=== PATIENT | female | born 2000 | race Caucasian/White ===

== ENCOUNTER 2021-06-21 20:48 | Emergency (ER) | payer BC ==
--- NOTE | 2021-06-21 21:08 | EDM.PDOC ---
ED HPI GENERAL MEDICAL PROBLEM - General Stated Complaint: TROUBLE BREATHING Time Seen by Provider: 06/21/21 21:05 Source of Information: Reports: Patient History Limitations: Reports: No Limitations - History of Present Illness INITIAL COMMENTS - FREE TEXT/NARRATIVE: 21-year-old female with history of migraine headaches who reports set of frontal headache at around 6 PM tonight when she was driving home. By the time she got home the pain which had been mild and spread to behind her eyes and was becoming more severe. She took one of her Zomig and this did nothing to relieve her headache and in fact the headache got worse with time and is now all over her head. She reports that the pain is a 7/10. It is throbbing and pressure type headache. There is photophobia and photophobia and she has had nausea with multiple episodes of dry heaving. The nausea is persisting. She denies any neck pain. She does report general body aches. She also reports teeth pain and facial and ear pain. She has no arm or leg weakness. She is tearful and is quite anxious right now. She reports that the teeth pain which is really in all of her teeth which is unusual because she has not had this with her migraines in the past. Also she usually has more vomiting associated with her migraines. There is no neck stiffness. She states that she does have some allergy type symptoms but she has had no fevers or chills and there has been no purulent discharge from her nose. There are no other associated signs or symptoms. There are no other modifying factors. Onset: Today (6 PM) Duration: Getting Worse Location: Reports: Head, Face, Generalized (Body aches.) Quality: Reports: Ache, Sharp, Throbbing Severity: Moderate (to severe.) Improves with: Reports: None Worsens with: Reports: Other (As above.), Movement Context: Reports: Other (As above.). Denies: Trauma Associated Symptoms: Reports: No Other Symptoms (Except as above.) Treatments DISC JOCKEY: Reports: Other Medication(s) (zomig) Headache Pain Score (Numeric/FACES): 7 - Related Data Allergies Allergy/AdvReac Type Severity Reaction Status Date / Time amoxicillin [From Augmentin] Allergy Rash Verified 06/21/21 20:57 clavulanic acid Allergy Rash Verified 06/21/21 20:57 [From Augmentin] Past Medical History Neurological History: Reports: Migraines - Past Surgical History HEENT Surgical History: Reports: Oral Surgery ([place] teeth extraction), Tonsillectomy GI Surgical History: Reports: Cholecystectomy Female Surgical History: Reports: Other (See Below) (Labiaplasty) Social & Family History - Tobacco Use Tobacco Use Status *Q: Unknown Ever Used Tobacco (Nonsmoker.) - Alcohol Use Alcohol Use History: Yes Alcohol Use in Last Twelve Months: No Alcohol Use Comment: No alcohol for the past 3 years. - Living Situation & Occupation Living situation: Reports: Single Occupation: Employed (Works as a graduating machine operator at [employer] ED ROS GENERAL - Review of Systems Review Of Systems: See Below Constitutional: Denies: Fever, Chills HEENT: Reports: Other (Nasal congestion. Allergy symptoms.) Respiratory: Denies: Shortness of Breath, Cough Cardiovascular: Denies: Chest Pain, Palpitations GI/Abdominal: Reports: Nausea, Vomiting (Right knee pain.) : Reports: Other (Denies any possibility of .). Denies: Dysuria Musculoskeletal: Reports: Other (Some body aches.). Denies: Neck Pain Skin: Denies: Diaphoresis, Rash Neurological: Reports: Dizziness, Headache Psychiatric: Reports: Anxiety Hematologic/Lymphatic: Denies: Easy Bleeding, Easy Bruising ED EXAM, GENERAL - Physical Exam Exam: See Below Exam Limited By: No Limitations General Appearance: Alert, Anxious, Moderate Distress (Secondary to pain.), Obese Eye Exam: Bilateral Eye: EOMI, Normal Inspection, Other (Photophobia) Ears: Normal External Exam, Hearing Grossly Normal Ear Exam: Bilateral Ear: Auricle Normal Nose: Normal Inspection, Normal Mucosa, No Blood Throat/Mouth: Normal Inspection, Normal Teeth, Normal Voice, No Airway Compromise Head: Atraumatic, Normocephalic Neck: Normal Inspection, Supple, Non-Tender, Full Range of Motion Respiratory/Chest: No Respiratory Distress, Lungs Clear, No Accessory Muscle Use Cardiovascular: Normal Peripheral Pulses, Regular Rate, Rhythm. No: No Murmur Peripheral Pulses: 2+: Radial (L), Radial (R) GI/Abdominal: Normal Bowel Sounds, Soft, Non-Tender, No Mass Back Exam: Normal Inspection, Full Range of Motion Extremities: Normal Inspection, Normal Range of Motion, Normal Capillary Refill Neurological: Alert, Oriented, CN II-XII Intact, Normal Cognition, No Motor/Sensory Deficits Psychiatric: Anxious Skin Exam: Warm, Dry, Intact, Normal Color, No Rash Course - Vital Signs Last Recorded V/S: Last Vital Signs Temp 36.4 C 06/21/21 20:57 Pulse 75 06/21/21 23:01 Resp 18 06/21/21 23:01 BP 125/86 06/21/21 23:01 Pulse Ox 97 06/21/21 20:57 - Orders/Labs/Meds Orders: Active Orders 24 hr Category Date Time Status Sodium Chloride 0.9% [Saline Flush] Med 06/21/21 21:18 Active 10 ml FLUSH ASDIRECTED PRN Peripheral IV Insertion Adult [OM.PC] Routine Oth 06/21/21 21:18 Ordered Medication Orders Sodium Chloride (Sodium Chloride 0.9% 10 Ml Syringe) 10 ml FLUSH ASDIRECTED PRN PRN Reason: Keep Vein Open Meds: Medications Generic Name Dose Route Start Last Admin Trade Name Freq PRN Reason Stop Dose Admin Sodium Chloride 10 ml 06/21/21 21:18 Sodium Chloride 0.9% 10 Ml Syringe FLUSH ASDIRECTED PRN Keep Vein Open Discontinued Medications Generic Name Dose Route Start Last Admin Trade Name Freq PRN Reason Stop Dose Admin Diphenhydramine HCl 25 mg 06/21/21 21:19 06/21/21 21:39 Diphenhydramine 50 Mg/Ml Sdv IVPUSH 06/21/21 21:20 25 mg ONETIME ONE Administration Sodium Chloride 1,000 mls @ 999 mls/hr 06/21/21 21:18 06/21/21 21:41 Normal Saline IV 06/21/21 22:18 999 mls/hr .BOLUS ONE Administration Prochlorperazine Edisylate 10 52 mls @ 150 mls/hr 06/21/21 21:19 06/21/21 21:41 mg/ Sodium Chloride IV 06/21/21 21:39 150 mls/hr ONETIME ONE Administration Ketorolac Tromethamine 30 mg 06/21/21 21:19 06/21/21 21:40 Ketorolac 30 Mg/Ml Sdv IVPUSH 06/21/21 21:20 30 mg ONETIME ONE Administration Lorazepam 1 mg 06/21/21 21:19 06/21/21 21:30 Lorazepam 2 Mg/Ml Sdv IVPUSH 06/21/21 21:20 1 mg ONETIME ONE Administration - Re-Assessments/Exams Free Text/Narrative Re-Assessment/Exam: 06/21/21 23:00: Patient's medications have been given. Her IV fluids have been infused completely. Her headache is essentially gone. She is awake, alert and appropriate. She has no more teeth pain or facial pain. Her ear pain, photophobia and phonophobia have all resolved. She feels much improved. She has been ambulatory without any problems. The plan will be to discharge her home at this point. Departure - Departure Time of Disposition: 23:05 Disposition: Home, Self-Care 01 Condition: Good (Improved) Clinical Impression: Migraine headache Qualifiers: Migraine type: unspecified Status migrainosus presence: without status migrainosus Intractability: not intractable Qualified Code(s): G43.909 - Migraine, unspecified, not intractable, without status migrainosus - Discharge Information Instructions: Migraine Headache, [id number] Referrals: PCP,None [Primary Care Provider] - Additional Instructions: Your responded well to the IV medications that you were given for your migraine headache. You should rest in a dark, quiet room. You should increase your fluid intake. Follow-up with your primary provider. Back to the emergency department for worsening headache, unrelenting vomiting, high fever, severe weakness or any other concerning signs or symptoms. Sepsis Event Note (ED) - Evaluation Sepsis Screening Result: No Definite Risk - Focused Exam Vital Signs: Vital Signs Temp Pulse Resp BP Pulse Ox 06/21/21 23:01 75 18 125/86 06/21/21 20:57 36.4 C 93 18 155/117 H 97 - My Orders Last 24 Hours: My Active Orders 06/21/21 21:18 Sodium Chloride 0.9% [Saline Flush] 10 ml FLUSH ASDIRECTED PRN Peripheral IV Insertion Adult [OM.PC] Routine - Assessment/Plan Last 24 Hours: My Active Orders 06/21/21 21:18 Sodium Chloride 0.9% [Saline Flush] 10 ml FLUSH ASDIRECTED PRN Peripheral IV Insertion Adult [OM.PC] Routine
[2021-06-21] MEDS ORDERED: Sodium Chloride 0.9% 10 ML Syringe FLUSH PRN (21:18)
[2021-06-21] MEDS ORDERED: Sodium Chloride 0.9% 1,000 ML IV ONE (21:18)
[2021-06-21] MEDS ORDERED: LORazepam 2 MG/ML SDV IVPUSH ONE (21:19)
[2021-06-21] MEDS ORDERED: diphenhydrAMINE 50 MG/ML SDV IVPUSH ONE (21:19)
[2021-06-21] MEDS ORDERED: Prochlorperazine 10 MG in Sodium Chloride 0.9% 50 ML IV ONE (21:19)
[2021-06-21] MEDS ORDERED: Ketorolac 30 MG/ML SDV IVPUSH ONE (21:19)
== END 2021-06-21 23:21 | disposition home or self-care (01) ==
LOC: FB.ED 20:48
DX: G43.909 Migraine, unspecified, not intractable, without status migrainosus (principal); Z88.0 Allergy status to penicillin; Z88.1 Allergy status to other antibiotic agents
CPT/HCPCS: 96365; 96375; 99283; J0780; J1200; J1885; J2060; J7030

== ENCOUNTER 2021-09-13 19:26 | Emergency (ER) | payer BC ==
--- NOTE | 2021-09-13 20:19 | EDM.PDOC ---
ED HPI GENERAL MEDICAL PROBLEM - General Chief Complaint: Headache Stated Complaint: MIGRAINE 2 DAYS Time Seen by Provider: 09/13/21 20:15 Source of Information: Reports: Patient History Limitations: Reports: No Limitations - History of Present Illness INITIAL COMMENTS - FREE TEXT/NARRATIVE: 21-year-old female with onset of headache 2 days ago. She awoke with a headache and she had some nausea and vomiting at that time and it was all across her forehead and associated with photophobia. She states it was like her typical migraine and she took ibuprofen and slept and her headache seemed to go away yesterday and then it came back according when she awoke and she has had nausea through the day some neck stiffness and is mostly on the left side of her head now. There is no photophobia. She has had no vomiting. The headache is rated by her as a 5/10. She has had no fevers or chills. No nasal congestion or sore throat. No difficulty breathing. She states she has had headaches like this in the past and this one is just not resolving. There are no other associated signs or symptoms. There are no other modifying factors. 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.) Left Headache Pain Score (Numeric/FACES): 5 - Related Data Allergies Allergy/AdvReac Type Severity Reaction Status Date / Time amoxicillin [From Augmentin] Allergy Rash Verified 09/13/21 19:48 clavulanic acid Allergy Rash Verified 09/13/21 19:48 [From Augmentin] Home Meds: Home Meds ZOLMitriptan [Zolmitriptan] 2.5 mg PO DAILY 09/13/21 [History] Past Medical History HEENT History: Reports: Impaired Vision Neurological History: Reports: Migraines Psychiatric History: Reports: Anxiety, Depression, Panic Attack - Past Surgical History HEENT Surgical History: Reports: Oral Surgery ([place] teeth extraction), Tonsillectomy GI Surgical History: Reports: Cholecystectomy Female Surgical History: Reports: Other (See Below) (Labiaplasty) Social & Family History - Tobacco Use Tobacco Use Status *Q: Unknown Ever Used Tobacco (Nonsmoker.) - Caffeine Use Caffeine Use: Reports: Coffee, Soda - Alcohol Use Alcohol Use History: Yes Alcohol Use Frequency: Socially - Living Situation & Occupation Living situation: Reports: Single 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 Denies: Throat Pain Respiratory: Denies: Shortness of Breath, Cough Cardiovascular: Reports: Lightheadedness. Denies: Chest Pain Endocrine: Reports: Fatigue GI/Abdominal: Reports: Nausea. Denies: Abdominal Pain, Diarrhea, Vomiting Musculoskeletal: Reports: Neck Pain (Some neck stiffness.). Denies: Back Pain Skin: Denies: Diaphoresis, Rash Neurological: Reports: Headache Hematologic/Lymphatic: Denies: Easy Bleeding, Easy Bruising - Physical Exam Exam: See Below Exam Limited By: No Limitations General Appearance: Alert, WD/WN, Moderate Distress (Appears in some discomfort.) Eye Exam: Bilateral Eye: EOMI, Normal Inspection (Sclera are anicteric), PERRL, Other (Photophobia bilaterally) Ears: Normal External Exam, Hearing Grossly Normal Nose: Normal Inspection, Normal Mucosa, No Blood Throat/Mouth: Normal Voice, No Airway Compromise, Other (Primary to arrange.) Head Exam: Atraumatic, Normocephalic Neck: Normal Inspection, Supple, Non-Tender, Full Range of Motion, Other (No meningismus.) Respiratory/Chest: No Respiratory Distress, Lungs Clear, Normal Breath Sounds, No Accessory Muscle Use, Chest Non-Tender Cardiovascular: Normal Peripheral Pulses, Regular Rate, Rhythm, No Murmur Neuro Exam (Abbreviated): Alert, Oriented, CN II-XII Intact, Normal Cognition, No Motor/Sensory Deficits Back Exam: Normal Inspection Extremities: Normal Inspection, Normal Range of Motion, Non-Tender, No Pedal Edema, Normal Capillary Refill Psychiatric: Depressed Mood Skin Exam: Warm, Dry, Intact, Normal Color, No Rash Course - Vital Signs Last Recorded V/S: Last Vital Signs Temp 36.6 C 09/13/21 19:50 Pulse 71 09/13/21 19:50 Resp 18 09/13/21 19:50 BP 151/109 H 09/13/21 19:50 Pulse Ox 97 09/13/21 19:50 - Orders/Labs/Meds Orders: Active Orders 24 hr Category Date Time Status Peripheral IV Insertion Adult [OM.PC] Routine Oth 09/13/21 20:26 Ordered Meds: Medications Discontinued Medications Generic Name Dose Route Start Last Admin Trade Name Freq PRN Reason Stop Dose Admin Diphenhydramine HCl 50 mg 09/13/21 20:27 09/13/21 21:02 Diphenhydramine 50 Mg/Ml Sdv IVPUSH 09/13/21 20:28 50 mg ONETIME ONE Administration Sodium Chloride 1,000 mls @ 999 mls/hr 09/13/21 20:27 09/13/21 21:06 Normal Saline IV 09/13/21 21:27 999 mls/hr .BOLUS ONE Administration Ketorolac Tromethamine 30 mg 09/13/21 20:27 09/13/21 21:02 Ketorolac 30 Mg/Ml Sdv IVPUSH 09/13/21 20:28 30 mg ONETIME ONE Administration Prochlorperazine Edisylate 10 mg 09/13/21 20:27 09/13/21 21:02 Prochlorperazine 10 Mg/2 Ml Sdv IVPUSH 09/13/21 20:28 10 mg ONETIME ONE Administration Sodium Chloride 10 ml 09/13/21 20:26 09/13/21 21:00 Sodium Chloride 0.9% 10 Ml Syringe FLUSH 10 ml ASDIRECTED PRN Administration Keep Vein Open - Re-Assessments/Exams Free Text/Narrative Re-Assessment/Exam: 09/13/21 23:40: Patient feels much improved. Her headache has completely resolved. She has resolved. She feels tired but much better and is ready for discharge home. Precautions and reasons for return to the emergency department were discussed with the patient while she was in the emergency department and they were detailed in the patient's discharge instructions. Departure - Departure Time of Disposition: 23:07 Disposition: Home, Self-Care 01 Condition: Good (Improved) Clinical Impression: Dehydration, Elevated blood pressure reading Migraine headache Qualifiers: Migraine type: unspecified Status migrainosus presence: without status migrainosus Intractability: not intractable Qualified Code(s): G43.909 - Migraine, unspecified, not intractable, without status migrainosus - Discharge Information Instructions: Migraine Headache, [id number], Dehydration, Adult, [id number], Rehydration, Adult Referrals: PCP,Not In Area [Primary Care Provider] - Forms: ED Department Discharge Additional Instructions: This appeared to be one of your migraine headaches but just somewhat worse. He responded well to the IV fluids and medications. You're blood pressure was elevated in the emergency department. You should rest. You should increase your fluid intake. Should follow-up with your primary provider in regard to your migraine headaches and also to your elevated blood pressure. Back to the emergency department for worsening/recurrent headache, unrelenting vomiting, high fever, localized area of weakness or numbness, severe weakness or any other concerning signs or symptoms. Sepsis Event Note (ED) - Evaluation Sepsis Screening Result: No Definite Risk - Focused Exam Vital Signs: Vital Signs Temp Pulse Resp BP Pulse Ox 09/13/21 19:50 36.6 C 71 18 151/109 H 97 - My Orders Last 24 Hours: My Active Orders 09/13/21 20:26 Peripheral IV Insertion Adult [OM.PC] Routine - Assessment/Plan Last 24 Hours: My Active Orders 09/13/21 20:26 Peripheral IV Insertion Adult [OM.PC] Routine
[2021-09-13] MEDS ORDERED: Sodium Chloride 0.9% 10 ML Syringe FLUSH PRN (20:26)
[2021-09-13] MEDS ORDERED: Ketorolac 30 MG/ML SDV IVPUSH ONE (20:27)
[2021-09-13] MEDS ORDERED: Prochlorperazine 10 MG/2 ML SDV IVPUSH ONE (20:27)
[2021-09-13] MEDS ORDERED: Sodium Chloride 0.9% 1,000 ML IV ONE (20:27)
[2021-09-13] MEDS ORDERED: diphenhydrAMINE 50 MG/ML SDV IVPUSH ONE (20:27)
== END 2021-09-13 23:15 | disposition home or self-care (01) ==
LOC: FB.ED 19:26
DX: E86.0 Dehydration (principal); G43.909 Migraine, unspecified, not intractable, without status migrainosus; R03.0 Elevated blood-pressure reading, without diagnosis of hypertension; Z88.0 Allergy status to penicillin; Z88.1 Allergy status to other antibiotic agents
CPT/HCPCS: 96374; 96375; 99283-25; J0780; J1200; J1885; J7030